=== PATIENT | female | born 1995 ===

== ENCOUNTER 2022-05-10 22:51 | Emergency (ER) | payer SELFPAY ==
[2022-05-11 01:47] LABS: Blood Urea Nitrogen 6 mg/dL (7-17); Calcium 9.7 mg/dL (8.4-10.2); Hemolysis Index 6
[2022-05-11 01:48] LABS: Basophils % (Auto) 0.3 % (0.0-1.8); Eosinophils # (Auto) 0.1 K/mm3 (0.0-0.4); Eosinophils % (Auto) 1.1 % (0.0-4.3); Hematocrit 38.1 % (30.3-42.9); Hemoglobin 12.6 gm/dl (10.1-14.3); Lymphocytes % (Auto) 24.6 % (13.4-35.0); Mean Corpuscular HGB Conc 33 % (30-34); Mean Corpuscular Volume 89 fl (79-97); Monocytes # (Auto) 0.5 K/mm3 (0.0-0.8); Monocytes % (Auto) 6.4 % (0.0-7.3); Platelet Count 276 K/mm3 (140-440); Red Blood Count 4.29 M/mm3 (3.65-5.03); Red Cell Distribution Width 13.4 % (13.2-15.2)
[2022-05-11 01:50] LABS: BUN/Creatinine Ratio 12
[2022-05-11 01:58] LABS: INR 0.9 (0.87-1.13)
--- NOTE | 2022-05-11 04:48 | Ultrasound Report ---
ULTRASOUND OBSTETRIC INDICATION / CLINICAL INFORMATION: Vaginal bleeding. - Clinical Gestational Age (GA) in weeks, days: 8 weeks 6 days TECHNIQUE: Transabdominal. COMPARISON: None available. FINDINGS: GESTATIONAL SAC: Well-defined oval shape and intrauterine in location. YOLK SAC: No significant abnormality. EMBRYO/FETUS: No pole is detected at this time. -Mean sac diameter = 1.28 cm = 6, 1 weeks, days - Heart Rate, beats per minute (if present) = not detected at this time. UTERUS: No significant abnormality. ADNEXA: No significant abnormality. FREE FLUID: None. ADDITIONAL FINDINGS: None. IMPRESSION: 1. Single early intrauterine with a gestational sac and yolk sac, estimated sonographic age of 6 weeks, 1 days. Short-term OB ultrasound follow-up recommended to ensure appropriate developmen t of pole and cardiac activity. Signer Name: Nelson Tinajero MD Signed: 05/11/2022 4:44 AM Workstation Name: [employer]
--- NOTE | 2022-05-11 06:10 | Emergency Department Report ---
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 Patient is A0. Patient states mild abdominal cramping 2/10. There is no fevers no chills no nausea no vomiting. Patient denies vaginal discharge or concern for STI. Patient is . Patient has [employer] patient has used 1 pad per day the last 2 days. Patient continues to tolerate p.o. intake. MD Complaint: vaginal bleeding - Related Data Allergies Allergy/AdvReac Type Severity Reaction Status Date / Time No Known Allergies Allergy Unverified 05/11/22 00:15 ED Review of Systems ROS: Stated complaint: VAGINAL BLEEDING Other details as noted in HPI Constitutional: denies: chills, fever Eyes: denies: eye pain, eye discharge, vision change ENT: denies: ear pain, throat pain Respiratory: denies: cough, shortness of breath, wheezing Cardiovascular: denies: chest pain, palpitations Endocrine: no symptoms reported Gastrointestinal: abdominal pain (Cramping). denies: nausea, vomiting, diarrhea Genitourinary: denies: urgency, dysuria, discharge Musculoskeletal: denies: back pain, joint swelling, arthralgia Skin: denies: rash, lesions Neurological: denies: headache, weakness, paresthesias, vertigo Psychiatric: denies: anxiety, depression Hematological/Lymphatic: denies: easy bleeding, easy bruising ED Physical Exam - General Limitations: No Limitations General appearance: alert, in no apparent distress - Head Head exam: Present: normocephalic, normal inspection - Eye Eye exam: Present: normal appearance, PERRL, EOMI Pupils: Present: normal accommodation - ENT ENT exam: Present: mucous membranes moist - Neck Neck exam: Present: normal inspection, full ROM. Absent: tenderness - Respiratory Respiratory exam: Present: normal lung sounds bilaterally. Absent: respiratory distress, wheezes - Cardiovascular Cardiovascular Exam: Present: regular rate, normal rhythm, normal heart sounds. Absent: systolic murmur, diastolic murmur, rubs, gallop - GI/Abdominal GI/Abdominal exam: Present: soft, normal bowel sounds. Absent: distended, tenderness - Rectal Rectal exam: Present: deferred - External exam: Present: other (Deferred by patient) - Extremities Exam Extremities exam: Present: normal inspection, full ROM. Absent: joint swelling - Back Exam Back exam: Present: normal inspection, full ROM. Absent: CVA tenderness (R), CVA tenderness (L) - Neurological Exam Neurological exam: Present: alert, oriented X3, CN II-XII intact, normal gait - Expanded Neurological Exam Expanded Patient oriented to: Present: person, place, time Speech: Present: fluid speech Motor strength exam: RUE: 5, LUE: 5, RLE: 5, LLE: 5 Best Eye Response ([place]): (4) open spontaneously Best Motor Response ([place]): (6) obeys commands Best Verbal Response (Jose): (5) oriented Jose Total: 15 - Psychiatric Psychiatric exam: Present: normal affect, normal mood - Skin Skin exam: Present: warm, dry, intact, normal color. Absent: rash ED Course Vital Signs 05/11/22 00:10 Temperature 99.2 F Pulse Rate 84 Respiratory 18 Rate Blood Pressure 117/68 [Right] O2 Sat by Pulse 99 Oximetry ED Medical Decision Making - Lab Data Result diagrams: 05/11/22 00:52 05/11/22 00:52 Labs 05/11/22 05/11/22 05/11/22 00:52 00:52 00:52 WBC 8.3 RBC 4.29 Hgb 12.6 Hct 38.1 MCV 89 MCH 29 MCHC 33 RDW 13.4 Plt Count 276 Lymph % (Auto) 24.6 [place] % (Auto) 6.4 Eos % (Auto) 1.1 Baso % (Auto) 0.3 Lymph # (Auto) 2.0 [place] # (Auto) 0.5 Eos # (Auto) 0.1 Baso # (Auto) 0.0 Seg Neutrophils % 67.6 Seg Neutrophils # 5.6 PT 13.4 INR 0.90 Sodium 138 Potassium 4.0 Chloride 102.3 Carbon Dioxide 23 Anion Gap 17 BUN 6 L Creatinine 0.5 L Estimated GFR > 60 BUN/Creatinine Ratio 12 Glucose 105 H Calcium 9.7 HCG, Quant 05/11/22 00:52 WBC RBC Hgb Hct MCV MCH MCHC RDW Plt Count Lymph % (Auto) [place] % (Auto) Eos % (Auto) Baso % (Auto) Lymph # (Auto) [place] # (Auto) Eos # (Auto) Baso # (Auto) Seg Neutrophils % Seg Neutrophils # PT INR Sodium Potassium Chloride Carbon Dioxide Anion Gap BUN Creatinine Estimated GFR BUN/Creatinine Ratio Glucose Calcium HCG, Quant 60153 H - Radiology Data Radiology results: report reviewed, image reviewed ULTRASOUND OBSTETRIC INDICATION / CLINICAL INFORMATION: Vaginal bleeding. - Clinical Gestational Age (GA) in weeks, days: 8 weeks 6 days TECHNIQUE: Transabdominal. COMPARISON: None available. FINDINGS: GESTATIONAL SAC: Well-defined oval shape and intrauterine in location. YOLK SAC: No significant abnormality. EMBRYO/FETUS: No pole is detected at this time. -Mean sac diameter = 1.28 cm = 6, 1 weeks, days - Heart Rate, beats per minute (if present) = not detected at this time. UTERUS: No significant abnormality. ADNEXA: No significant abnormality. FREE FLUID: None. ADDITIONAL FINDINGS: None. IMPRESSION: 1. Single early intrauterine with a gestational sac and yolk sac, estimated sonographic age of 6 weeks, 1 days. Short-term OB ultrasound follow-up recommended to ensure appropriate development of pole and cardiac activity. Signer Name: All Fitch MD Signed: 05/11/2022 4:44 AM Workstation Name: [email or web address] Transcribed By: RH Dictated By: ALL FITCH MD Electronically Authenticated By: ALL FITCH MD Signed Date/Time: 05/11/22443 DD/ 0 TD/TT: - Medical Decision Making Ultrasound OB single IUP 6 weeks 1 day, hCG quant noted above, patient declines vaginal exam or UA states she is related to Already, patient denies fevers or chills no nausea vomiting patient is tolerating p.o. intake. There is no dysuria frequency or urgency. Patient states no concern for STD. Patient will follow-up with [employer] in 2 days for follow-up ultrasound, Dr. Harrell., Critical care attestation.: If time is entered above; I have spent that time in minutes in the direct care of this critically ill patient, excluding procedure time. ED Disposition Clinical Impression: Vaginal bleeding during Disposition: 01 HOME / SELF CARE / HOMELESS Is pt being admited?: No Does the pt Need Aspirin: No Condition: Stable Instructions: Activity Restriction During , Vaginal Bleeding During P regnancy, Third Trimester, [id number] Additional Instructions: Pelvic rest until cleared by [employer], follow-up with [employer] in 1 to 2 days for follow-up ultrasound and hCG. Return to emergency department should symptoms worsen. Referrals: MEGGAN HARRIS DO [Staff Physician] - 2-3 Days Forms: Work/School Release Form(ED) Time of Disposition: 06:19
[2022-05-11 06:43] VITALS: BP 122/69
== END 2022-05-11 16:34 | disposition home or self-care (01) ==
LOC: ED 22:51
DX: O46.91 Antepartum hemorrhage, unspecified, first trimester (principal); Z3A.01 Less than 8 weeks gestation of pregnancy
CPT/HCPCS: 36415; 76801; 80048; 84702; 85025; 85610; 99284